=== PATIENT | male | born 1955 | race Caucasian/White ===

== ENCOUNTER 2016-05-25 08:12 | Day surgery (SDC) | payer OTHER ==
[2016-05-25] MEDS ORDERED: LACTATED RINGERS 1,000 ML ONE (08:19)
[2016-05-25] MEDS ORDERED: IV START KIT ONE (08:19)
[2016-05-25] MEDS ORDERED: LACTATED RINGERS 1,000 ML IV SCH (08:36)
[2016-05-25] MEDS ORDERED: ONDANSETRON 4 MG/2ML 2 ML VIAL IV PRN (08:36)
[2016-05-25] MEDS ORDERED: LIDOCAINE 1% 2 ML VIAL ID PRN (08:36)
[2016-05-25] MEDS ORDERED: LIDOCAINE 2% (PRES FREE) 5 ML VIAL ONE (09:57)
[2016-05-25] MEDS ORDERED: PROPOFOL 20 ML IV ONE ×2 (09:57)
[2016-05-25] MEDS ORDERED: KETAMINE HCL UD SYRINGE 100 MG/2 ML IV ONE (09:58)
== END 2016-05-25 11:11 | disposition home or self-care (01) ==
LOC: SDC 08:12
PROVIDERS: ATTEND Surgery
PROC: 0DJD8ZZ Inspection of Lower Intestinal Tract, Via Natural or Artificial Opening Endoscopic (ICD-10-PCS; principal; 2016-05-25)
DX: Z12.11 Encounter for screening for malignant neoplasm of colon (principal); F32.9 Major depressive disorder, single episode, unspecified; I10 Essential (primary) hypertension; F41.9 Anxiety disorder, unspecified
CPT/HCPCS: 45378; J7120